=== PATIENT | male | born 1985 | race Caucasian/White ===

== ENCOUNTER 2021-11-19 06:10 | Emergency (ER) | payer MEDICAID, SELFPAY ==
[2021-11-19 06:12] VITALS: BP 151/94; PULSE 98; RESP 18; TEMP 36.8; O2SAT 99; BMI 21.1
[2021-11-19 06:30] VITALS: BMI 21.1
--- NOTE | 2021-11-19 06:31 | XR_ITS ---
FINAL REPORT CLINICAL HISTORY: fall FINDINGS: 2 views of the right humerus were obtained. There is no acute fracture or dislocation. There is a sideplate and screws securing healed fracture of the distal femoral diaphysis. The joint spaces appear intact. There is no acute soft tissue abnormality. IMPRESSION: No acute process. Reviewed, Interpreted and Dictated by Ezequiel Kilgore MD Transcribed by Trev Reyes Authenticated by Ezequiel Kilgore MD on 11/19/2021 08:46:38 AM [facility]
--- NOTE | 2021-11-19 06:31 | XR_ITS ---
FINAL REPORT CLINICAL HISTORY: fall FINDINGS: 2 views of the right forearm were obtained. There is no acute fracture or dislocation. There is a sideplate and screws securing the mid radial diaphysis. There are moderate degenerative changes at the distal radioulnar joint. There is no soft tissue abnormality. IMPRESSION: No acute abnormality. Reviewed, Interpreted and Dictated by Ezequiel Kilgore MD Transcribed by Trev Reyes Authenticated by Ezequiel Kilgore MD on 11/19/2021 08:46:36 AM [facility]
--- NOTE | 2021-11-19 06:31 | XR_ITS ---
FINAL REPORT CLINICAL HISTORY: fall FINDINGS: RIGHT ELBOW Four views were obtained. There is no acute fracture or dislocation. There is a side plate with screws securing the proximal radial diaphysis. There is no joint effusion. The joint spaces are intact. There is an exostosis arising from the lateral distal humeral diaphysis. There is no soft tissue abnormality. IMPRESSION: No acute process. Reviewed, Interpreted and Dictated by Ezequiel Kilgore MD Transcribed by Trev Reyes Authenticated by Ezequiel Kilgore MD on 11/19/2021 08:46:24 AM [facility]
--- NOTE | 2021-11-19 06:33 | CT_ITS ---
FINAL REPORT CLINICAL HISTORY: fall FINDINGS: Axial images were obtained from the lung apex to the mid abdomen by computed tomography. Coronal reformatted images were obtained. This study was performed with techniques to keep radiation doses as low as reasonably achievable, (ALARA). Individualized dose reduction techniques using automated exposure control or adjustment of mA and/or kV according to the patient's size were employed. There is a left upper anterior chest wall stimulator device with streak artifact. There is no axillary adenopathy. There is no hilar or mediastinal adenopathy. Heart size is normal. There is no pericardial or pleural effusion. Limited images of the upper abdomen are unremarkable. There are early changes of centrilobular emphysema. No suspicious infiltrate or nodule is identified. There is old fracture deformity of several right ribs. There is no acute rib fracture. There is no pneumothorax. IMPRESSION: No acute process. Reviewed, Interpreted and Dictated by Ezequiel Kilgore MD Transcribed by Trev Reyes Authenticated by Ezequiel Kilgore MD on 11/19/2021 08:46:22 AM [facility]
--- NOTE | 2021-11-19 06:34 | XR_ITS ---
FINAL REPORT CLINICAL HISTORY: fall FINDINGS: 3 views of the right shoulder were obtained. There is no acute fracture or dislocation. The joint spaces are intact. There are no soft tissue abnormalities. IMPRESSION: No acute process. Reviewed, Interpreted and Dictated by Ezequiel Kilgore MD Transcribed by Trev Reyes Authenticated by Ezequiel Kilgore MD on 11/19/2021 08:46:[address] [facility]
--- NOTE | 2021-11-19 06:43 | CT_ITS ---
FINAL REPORT TECHNIQUE: Axial CT images of the thoracic spine were obtained without contrast. Sagittal and coronal reformatted images were also obtained. This study was performed with techniques to keep radiation doses as low as reasonably achievable (ALARA). Individualized dose reduction techniques using automated exposure control or adjustment of mA and/or kV according to the patient's size were employed. CLINICAL HISTORY: fall FINDINGS: There are compressions of 30-40% of T9, T10 and T11 that are of indeterminate age. No definite acute fracture line is seen. The vertebral alignment is normal. There is no evidence of significant canal stenosis. No paraspinous soft tissue abnormality is identified. IMPRESSION: Age-indeterminate compressions of T9, T10 and T11 without definite acute fracture line. Reviewed, Interpreted and Dictated by Ezequiel Kilgore MD Transcribed by Trev Reyes Authenticated by Ezequiel Kilgore MD on 11/19/2021 08:46:[address] [facility]
--- NOTE | 2021-11-19 06:43 | CT_ITS ---
FINAL REPORT TECHNIQUE: Axial images were performed through the lumbar spine by computed tomography. Sagittal reconstruction images were also performed. This study was performed with techniques to keep radiation doses as low as reasonably achievable, (ALARA). Individualized dose reduction techniques using automated exposure control or adjustment of mA and/or kV according to the patient's size were employed. CLINICAL HISTORY: fall FINDINGS: Sagittal reconstruction images demonstrate no subluxation. There is mild disc space narrowing at L1-L2. Axial imaging demonstrates no definite central canal stenosis. There is a mild diffuse disc bulge at L1-L2. There is a [id number]-sd-[id number] diffuse disc bulge with [id number] bilateral neural foraminal narrowing at L4-L5. IMPRESSION: No acute fracture. Reviewed, Interpreted and Dictated by Ezequiel Kilgore MD Transcribed by Trev Reyes Authenticated by Ezequiel Kilgore MD on 11/19/2021 08:46:18 AM [facility]
--- NOTE | 2021-11-19 06:54 | XR_ITS ---
FINAL REPORT CLINICAL HISTORY: fall COMPARISON: July 02, 2019 FINDINGS: The heart size is normal. The mediastinum is normal. There are chronic changes in both lungs. There are no pleural effusions. There is no pneumothorax. There is no osseous abnormality. A stimulator device overlies the base of the left neck. IMPRESSION: No acute cardiopulmonary process Reviewed, Interpreted and Dictated by Ezequiel Kilgore MD Transcribed by Trev Reyes Authenticated by Ezequiel Kilgore MD on 11/19/2021 08:46:17 AM [facility]
--- NOTE | 2021-11-19 07:07 | HMH.EDFALL ---
ED Disposition Clinical Impression: Seizures Sprain of shoulder, right Qualifiers: Encounter type: initial encounter Shoulder sprain type: unspecified sprain Qualified Code(s): S43.401A - Unspecified sprain of right shoulder joint, initial encounter Contusion of rib on right side Qualifiers: Encounter type: initial encounter Qualified Code(s): S20.211A - Contusion of right front wall of thorax, initial encounter Sprain of cervical neck Qualifiers: Encounter type: initial encounter Qualified Code(s): S13.9XXA - Sprain of joints and ligaments of unspecified parts of neck, initial encounter Disposition: Home, Self-Care Condition on Discharge: Good Instructions: DI for Shoulder Pain Additional Instructions: use meds and see pcp for follow up Prescriptions: Meloxicam [Mobic 15 mg tab] 15 mg PO DAILY #10 tab Transmission Status: Pending to [facility] #[id number] Referrals: Provider,Referral, MD [Primary Care Provider] - - Critical Care Critical Care Time: No Attestation: On 11/19/21, the high probability of a clinically significant, sudden or life threatening deterioration of the following system(s) required my full and direct attention, intervention and personal management. The time I documented below is in addition to time spent performing reported procedures but includes the following listed in this critical care notation. Medical Decision Making - Medical Records Medical records reviewed: Yes: I reviewed the patient's medical records. - Rex Inquiry Pt receiving controlled substance: No Vital Signs: 11/19/21 06:12 Temperature 98.2 F Temperature Source Oral Pulse Rate [Left Radial] 98 H Respiratory Rate 18 Blood Pressure [Right Arm] 151/94 H Blood Pressure Mean [Right Arm] 113 Blood Pressure Source [Right Arm] Automatic Cuff 02 Sat by Pulse Oximetry 99 Oxygen Delivery Method Room Air - Lab Data Lab results reviewed: Yes: I reviewed the patient's lab results. Lab Results 11/19/21 06:27: Urine Color Meri, Urine Appearance Clear, Urine pH 5.5, Ur Specific [place] >= 1.030, Urine Protein Trace, Urine Glucose (UA) Negative, Urine Ketones Trace, Urine Blood Negative, Urine Nitrate Negative, Urine Bilirubin 1+ A, Urine Urobilinogen 0.2, Ur Leukocyte Esterase Negative, Urine RBC 5-10, Urine WBC Occasional, Ur Squamous Epith Cells Occasional, Calcium Oxalate Crystal Trace, Urine Bacteria 1+, Urine Mucus 3+ Orders (Tests/Meds): ED MEDICATIONS Discontinued Medications Generic Name Dose Route Start Last Admin Trade Name Winsome PRN Reason Stop Dose Admin Ketorolac Tromethamine 60 mg 11/19/21 06:35 11/19/21 06:38 Ketorolac 60mg/2ml Vial IM 11/19/21 06:36 60 mg ONCE ONE Administration - Radiology Data #1 Image(s): Chest, Shoulder Image Reviewed: Yes I have reviewed radiologist's interpretation Preliminary Findings: No Fracture Seen - CT Data CT Scan: C-Spine, Chest, T-Spine, L-Spine Time Received: 10:[address] Reviewed: Yes: I have viewed the radiologist's interpretation Preliminary Findings: No Fracture Seen Medical Decision Narrative: on sz meds at this time and no acute fx seen on xrays will need to see pcp and consider therapy and ortho eval Fall HPI - General Chief Complaint: Fall Stated Complaint: AO 11/18/21 07:30 injury right arm,right chest Time Seen by Provider: 11/19/21 07:00 Mode of Arrival: Ambulatory Source of Information: Patient, Medical Record Limitations: No Limitations Description of Symptoms (Recalled from ER Triage Doc. by RN): PT REPORTS HX OF EPILEPSY AND STATES HE WAS OUT OF HIS VIMPAT FOR SEVERAL DAYS AND BELIEVES HE HAD A SEIZURE AND FELL. PT WITH BRUISING NOTED TO RIGHT ARM, CHEST. PT REPORTS DIFFICULTY TAKING DEEP BREATH. PT REPORTS PAIN 6/10 -SORE AND DULL ACHE - History of Present Illness HPI Narrative: hx of fall and c/o of rt rib and shoulder pain - possible related to sz - known hx of sz MD complaint: fall Ons
--- NOTE | 2021-11-19 07:40 | CT_ITS ---
FINAL REPORT TECHNIQUE: Axial images were obtained of the cervical spine by computed tomography. Coronal and sagittal reconstruction process performed. This study was performed with techniques to keep radiation doses as low as reasonably achievable (ALARA). Individualized dose reduction techniques using automated exposure control or adjustment of mA and/or kV according to the patient''s size were employed. CLINICAL HISTORY: injury x 1 day ago. pain FINDINGS: Cervical vertebrae show normal height. There is moderate disc space narrowing at C3-C4, C5-C6 and C6-C7. There is prominent posterior osteophyte formation at C5-C6 and C6-C7. There is high-grade bilateral neural foraminal narrowing at C5-C6 and C6-C7. There is no malalignment. The facets are properly aligned. IMPRESSION: No acute fracture. Degenerative change greater than expected for patient age with significant bilateral neural foraminal compromise at C5-6 and C6-7. Reviewed, Interpreted and Dictated by Ezequiel Kilgore MD Transcribed by Trev Reyes Authenticated by Ezequiel Kilgore MD on 11/19/2021 08:46:33 AM [facility]
[2021-11-19 08:16] LABS: Microscopic, Urine URINE MICROSCOPIC (MICROSCOPIC)
[2021-11-19 08:19] LABS: Appearance,Urine CLEAR (Clear); Blood, Urine Negative (Negative); Glucose,Urine (UA) Negative (Negative); Ketones,Urine TRACE (Negative); Leukocyte Esterase,Urine Negative (Negative); Nitrate,Urine Negative (Negative); PH,Urine 5.5 (5.0-8.5); Protein,Urine TRACE (Negative); Specific Gravity, Urine >= 1.030 (1.005-1.030); Urobilinogen,Urine 0.2 EU/dl (0.2)
[2021-11-19 08:21] LABS: Color,Urine Amber (Yellow)
[2021-11-19 08:27] LABS: Bilirubin,Urine 1+ (Negative)
[2021-11-19 08:42] LABS: Bacteria,Urine 1+ /lpf; Mucus,Urine 3+ /lpf; Squamous Epithelial Cell,Urine Occasional #/hpf (0-5); WBC,Urine Occasional #/hpf (0-3)
[2021-11-19 08:43] LABS: Calcium Oxalate Crystals,Urine Trace /lpf
[2021-11-19 10:35] VITALS: BP 148/84; PULSE 91; RESP 16; TEMP 36.8; O2SAT 98
== END 2021-11-19 10:37 | disposition home or self-care (01) ==
PROVIDERS: Emergency Provider Emergency Medicine
DX: G40.909 Epilepsy, unspecified, not intractable, without status epilepticus (principal); S43.401A Unspecified sprain of right shoulder joint, initial encounter; S20.211A Contusion of right front wall of thorax, initial encounter; S13.9XXA Sprain of joints and ligaments of unspecified parts of neck, initial encounter; W18.39XA Other fall on same level, initial encounter; Y92.019 Unspecified place in single-family (private) house as the place of occurrence of the external cause; F17.210 Nicotine dependence, cigarettes, uncomplicated
CPT/HCPCS: 71045; 71250; 72125; 72128; 72131; 73030; 73060; 73080; 73090; 81001; 96372; 99282

== ENCOUNTER 2022-04-20 12:04 | Emergency (ER) | payer MEDICAID, SELFPAY ==
[2022-04-20 12:05] VITALS: BP 112/69; PULSE 101; RESP 18; TEMP 36.7; O2SAT 97; BMI 17.8
--- NOTE | 2022-04-20 12:08 | HMH.EDNVD ---
ED Disposition Clinical Impression: Gastroenteritis, Hypokalemia Disposition: Home, Self-Care Condition on Discharge: Fair Instructions: Nausea and Vomiting-Adult Additional Instructions: Follow-up with your primary care physician in about 2 to 3 days if you do not feel any better. Return to the emergency department if you feel worse in any way. Stick with a clear liquid diet for the next 24 hours. Avoid using marijuana for the next few days. Prescriptions: Metoclopramide HCl [Reglan 10mg Tab] 10 mg PO TID PRN #15 tab PRN Reason: Vomiting Transmission Status: Pending to [id number] Referrals: Jamil Ho MD [Primary Care Provider] - - Critical Care Critical Care Time: No Attestation: On , the high probability of a clinically significant, sudden or life threatening deterioration of the following system(s) required my full and direct attention, intervention and personal management. The time I documented below is in addition to time spent performing reported procedures but includes the following listed in this critical care notation. Medical Decision Making - Medical Records Medical records reviewed: Yes: I reviewed the patient's medical records. - Rex Inquiry Pt receiving controlled substance: No Vital Signs: 04/20/22 12:05 04/20/22 12:30 Temperature 98.0 F Temperature Source Oral Pulse Rate 72 Pulse Rate [Left Radial] 101 H Respiratory Rate 18 Blood Pressure 111/70 Blood Pressure [Right Arm] 112/69 Blood Pressure Mean 83 Blood Pressure Mean [Right Arm] 83 Blood Pressure Source [Right Arm] Automatic Cuff Blood Pressure Position [Right Arm] Sitting 02 Sat by Pulse Oximetry 97 97 Oxygen Delivery Method Room Air - Lab Data Lab results reviewed: Yes: I reviewed the patient's lab results. Lab Results 04/20/22 12:20: WBC 13.9 H, RBC 5.19, Hgb 16.2, Hct 50.2, MCV 96.7 H, MCH 31.2, MCHC 32.2, RDW 13.5, Plt Count 369, MPV 7.3 L, Neut % (Auto) 78.7, Lymph % (Auto) 14.4, [place] % (Auto) 5.3, Eos % (Auto) 0.6, Baso % (Auto) 0.9, Neut # (Auto) 11.0 H, Lymph # (Auto) 2.0, [place] # (Auto) 0.7, Eos # (Auto) 0.1, Baso # (Auto) 0.1 04/20/22 12:20: Sodium 134 L, Potassium 2.7 L*, Chloride 94 L, Carbon Dioxide 32 H, Anion Gap 10.7, BUN 13, Creatinine 0.60 L, Estimated Creat Clear 146, Estimated GFR 152, Est GFR ( Amer) 183, Glucose 116 H, Calcium 8.5, Total Bilirubin 0.7, AST 31, ALT 22, Alkaline Phosphatase 78, Total Protein 6.9, Albumin 4.3, Globulin 2.6, Albumin/Globulin Ratio 1.7, Lipase 72 04/20/22 13:05: Urine Color Yellow, Urine Appearance Clear, Urine pH 7.5, Ur Specific [place] <= 1.005, Urine Protein Negative, Urine Glucose (UA) Negative, Urine Ketones Negative, Urine Blood Trace-i, Urine Nitrate Negative, Urine Bilirubin Negative, Urine Urobilinogen 1.0, Ur Leukocyte Esterase Negative, Ur Squamous Epith Cells Occasional Result diagrams: 04/20/22 12:20 04/20/22 12:20 Orders (Tests/Meds): ED MEDICATIONS Discontinued Medications Generic Name Dose Route Start Last Admin Trade Name Freq PRN Reason Stop Dose Admin Sodium Chloride 1,000 mls @ 999 mls/hr 04/20/22 12:30 04/20/22 12:19 Sod Chlor 0.9% 1000ml Bag IV 04/20/22 13:30 999 mls/hr .Q1H1M RICKY Administration Metoclopramide HCl 10 mg 04/20/22 12:46 04/20/22 12:48 Metoclopramide Hcl 10mg/2ml Vial IVP 04/20/22 12:47 10 mg ONCE ONE Administration Ondansetron HCl 4 mg 04/20/22 12:16 04/20/22 12:18 Ondansetron 4mg/2ml Vial IV 04/20/22 12:17 4 mg ONCE ONE Administration Potassium Chloride 60 meq 04/20/22 12:40 04/20/22 13:06 Potassium Chloride 20meq Tab PO 04/20/22 12:41 60 meq ONCE ONE Administration Medical Decision Narrative: The patient presents to the emergency department complaining of nausea and vomiting with some mild diarrhea. The patient's work-up in the emergency department revealed that the patient has hypokalemia which I presume is secondary to the vom
[2022-04-20 12:28] LABS: Basophils # 0.1 K/mm3 (0-0.2); Basophils % 0.9 % (0.1-2.0); Eosinophils # 0.1 K/mm3 (0.0-0.4); Eosinophils % 0.6 % (0.1-12.0); Hematocrit 50.2 % (42.0-52.0); Hemoglobin 16.2 g/dL (14.1-18.0); Lymphocytes % 14.4 % (10-50); Mean Corpuscular HGB Conc 32.2 g/dL (31.8-35.4); Mean Corpuscular Hemoglobin 31.2 pg (27.0-31.2); Mean Corpuscular Volume 96.7 fl (80-94); Mean Platelet Volume 7.3 fl (7.4-10.4); Monocytes # 0.7 K/mm3 (0.1-1.0); Monocytes % 5.3 % (1.7-9.3); Neutrophils % 78.7 % (37.0-80.0); Platelet Count 369 K/mm3 (142-424); Red Blood Count 5.19 M/mm3 (4.60-6.20); Red Cell Distribution Width 13.5 % (11.5-17.5); White Blood Count 13.9 K/mm3 (4.8-10.8)
[2022-04-20 12:30] VITALS: BP 111/70; PULSE 72; O2SAT 97
--- NOTE | 2022-04-20 12:30 | PC.NURSE ---
pt unable to urinate at this time
[2022-04-20 12:35] LABS: Chloride 94 mmol/L (98-107)
[2022-04-20 12:36] LABS: Sodium 134 mmol/L (136-145)
[2022-04-20 12:38] LABS: Blood Urea Nitrogen 13 mg/dl (9-20); Creatinine Clearance Estimated 146 mL/min (50-200); Estimated Glomerular Filt Rate 152 ml/min (>60); GFR (African American) 183 ML/MIN (>60)
[2022-04-20 12:39] LABS: Alanine Aminotransferase 22 U/L (12-78); Albumin Level 4.3 g/dl (3.5-5.0); Albumin/Globulin Ratio 1.7 (1.1-1.8); Alkaline Phosphatase 78 U/L (38-126); Anion Gap 10.7 mEq/L (5-15); Aspartate Amino Transferase 31 U/L (17-59); Bilirubin,Total 0.7 mg/dl (0.2-1.3); Calcium 8.5 mg/dl (8.4-10.2); Carbon Dioxide 32 mmol/L (22.0-30.0); Globulin 2.6 g/dL (1.3-3.2); Glucose 116 mg/dl (74-100); Lipase 72 U/L (23-300); Total Protein,Serum 6.9 g/dl (6.3-8.2)
[2022-04-20 12:40] LABS: Potassium 2.7 mmoL/L (3.5-5.1)
--- NOTE | 2022-04-20 12:55 | PC.NURSE ---
pt moved to room 5 from room 10 d/t low potassium. pt placed on the custodial engineer. pt reports nausea. MD notified and additional orders placed. urinal at bedside for urine collection.
--- NOTE | 2022-04-20 12:58 | PC.NURSE ---
potassium held until nausea is controlled.
[2022-04-20 13:12] LABS: Appearance,Urine CLEAR (Clear); Bilirubin,Urine Negative (Negative); Blood, Urine TRACE-I (Negative); Color,Urine YELLOW (Yellow); Glucose,Urine (UA) Negative (Negative); Ketones,Urine Negative (Negative); Leukocyte Esterase,Urine Negative (Negative); Microscopic, Urine URINE MICROSCOPIC (MICROSCOPIC); Nitrate,Urine Negative (Negative); PH,Urine 7.5 (5.0-8.5); Protein,Urine Negative (Negative); Specific Gravity, Urine <= 1.005 (1.005-1.030)
[2022-04-20 13:24] LABS: Squamous Epithelial Cell,Urine Occasional #/hpf (0-5)
[2022-04-20 14:03] VITALS: BP 115/78; PULSE 60; RESP 20; TEMP 36.7; O2SAT 99
== END 2022-04-20 14:04 | disposition home or self-care (01) ==
PROVIDERS: Emergency Provider Emergency Medicine; PCP Emergency Medicine
DX: K52.9 Noninfective gastroenteritis and colitis, unspecified (principal); Z79.899 Other long term (current) drug therapy; F41.9 Anxiety disorder, unspecified; F32.A Depression, unspecified
CPT/HCPCS: 80053; 81001; 83690; 85025; 99283; J2405